=== PATIENT | male | born 1955 | race Caucasian/White ===

== ENCOUNTER 2018-12-19 17:11 | Outpatient (CLI) | payer OTHER ==
--- NOTE | 2018-12-19 17:42 | RAD ---
EXAM: Supine abdomen: INDICATIONS: Abdominal pain COMPARISON: None. FINDINGS: Bowel gas pattern unremarkable. No abnormal calcification or soft tissue mass. Degenerative spine change. IMPRESSION: No acute finding
[2018-12-19 18:06] LABS: #Basophils 0.1 thou/uL (0.0-0.2); #Eosinphils 0.1 thou/uL (0.0-0.7); #Lymphocytes 3.5 thou/uL (1.20-3.40); #Monocytes 0.5 thou/uL (0.11-0.59); #Neutrophils 3.8 thou/uL (1.40-6.50); %Basophils 1.2 % (0.0-1.0); %Eosinophils 1.7 % (0.0-10.0); %Lymphocytes 43.3 % (21.0-51.0); %Monocytes 6.4 % (0.0-10.0); %Neutrophils 47.4 % (42.0-75.0); Hemoglobin 13.6 g/dL (14.0-18.0); Mean Corpuscular HGB CONC 34.3 g/dL (32.0-36.0); Mean Corpuscular Hemoglobin 32.5 pg (27.0-31.0); Mean Corpuscular Volume 94.7 fL (78.0-98.0); Mean Platelet Volume 6.1 fL (7.4-10.4); Platelet Count 242 thou/uL (130-400); RBC Distribution Width 12.1 % (11.5-14.5); Red Blood Cell (RBC) Count 4.19 mill/uL (4.70-6.10)
[2018-12-19 18:28] LABS: ALT (SGPT) 26 U/L (8-55); AST (SGOT) 15 U/L (5-34); Albumin 4.1 g/dL (3.4-4.8); Alkaline Phosphatase 55 U/L (40-150); Anion Gap 14 mmol/L (10-20); BUN (Urea Nitrogen) 14 mg/dL (8.4-25.7); Bilirubin, Total 0.3 mg/dL (0.2-1.2); Calc. Creatinine Clearance 0 mL/min (70-130); Calcium 9.2 mg/dL (7.8-10.44); Carbon Dioxide 22 mmol/L (23-31); Chloride 107 mmol/L (98-107); Estimated GFR-MDRD Greater than 90; Globulin 3.1 g/dL (2.4-3.5); Glucose 123 mg/dL (80-115); Lipase 35 U/L (8-78); Potassium 4.4 mmol/L (3.5-5.1); Protein, Total 7.2 g/dL (5.8-8.1); Sodium 139 mmol/L (136-145)
[2018-12-19 22:02] LABS: Hemoglobin A1c 5.7 % (4.0-6.0)
[2018-12-23 10:15] LABS: H. pylori IgA ABS Less than 9.0 units (0.0-8.9); H. pylori IgG ABS 6.28 (0.00-0.79); H. pylori IgM ABS Less than 9.0 units (0.0-8.9)
== END 2018-12-19 17:12 | disposition home or self-care (01) ==
LOC: MADRAD 17:11
PROVIDERS: ATTEND Family Medicine
DX: R10.84 Generalized abdominal pain (principal); R63.5 Abnormal weight gain
CPT/HCPCS: 36415; 74018; 80053; 82150; 83036; 83690; 84443; 85025

== ENCOUNTER 2022-06-05 02:29 | Emergency (ER) | payer MEDICARE, OTHER ==
[2022-06-05] MEDS ORDERED: Oxymetazoline HCl 0.05% (30 ML BOT) ONE (02:34)
[2022-06-05] MEDS ORDERED: HYDROcodone/Acetaminophen 5/325 mg Tablet ONE ×2 (03:03→08:00)
[2022-06-05 03:20] LABS: #Basophils 0.1 thou/uL (0.0-0.2); #Eosinphils 0.2 thou/uL (0.0-0.7); #Lymphocytes 4.2 thou/uL (1.20-3.40); #Monocytes 0.6 thou/uL (0.11-0.59); #Neutrophils 5.8 thou/uL (1.40-6.50); %Basophils 0.9 % (0.0-1.0); %Eosinophils 1.8 % (0.0-10.0); %Lymphocytes 38.1 % (21.0-51.0); %Monocytes 5.6 % (0.0-10.0); %Neutrophils 53.6 % (42.0-75.0); Hemoglobin 12.3 g/dL (14.0-18.0); Mean Corpuscular HGB CONC 32.9 g/dL (32.0-36.0); Mean Corpuscular Volume 91.1 fl (78.0-98.0); Mean Platelet Volume 7.3 fL (7.4-10.4); Platelet Count 333 10x3/uL (130-400); RBC Distribution Width 12.6 % (11.5-14.5); Red Blood Cell (RBC) Count 4.09 mill/uL (4.70-6.10); White Blood Cell (WBC) Count 10.9 10x3/uL (4.8-10.8)
[2022-06-05 03:35] LABS: PTT 27.5 sec (22.9-36.1); Prothrombin Time 13.2 sec (12.0-14.7)
[2022-06-05 03:44] LABS: ALT (SGPT) 16 U/L (8-55); AST (SGOT) 16 U/L (5-34); Albumin 3.8 g/dL (3.4-4.8); Alkaline Phosphatase 61 U/L (40-110); Anion Gap 16 mmol/L (10-20); BUN (Urea Nitrogen) 10 mg/dL (8.4-25.7); Bilirubin, Total 0.2 mg/dL (0.2-1.2); Calc. Creatinine Clearance 0 mL/min (70-130); Calcium 9.2 mg/dL (7.8-10.44); Carbon Dioxide 18 mmol/L (23-31); Chloride 106 mmol/L (98-107); Estimated GFR 97; Globulin 4.1 g/dL (2.4-3.5); Glucose 166 mg/dL (80-115); Protein, Total 7.9 g/dL (5.8-8.1); Sodium 136 mmol/L (136-145)
[2022-06-05] MEDS ORDERED: Amoxicillin/Potassium Clav 875 MG TAB ONE (04:20)
[2022-06-05 07:18] LABS: Hemoglobin 11.3 g/dL (14.0-18.0)
== END 2022-06-05 08:08 | disposition home or self-care (01) ==
LOC: MADERS 02:29
DX: R04.0 Epistaxis (principal); E78.00 Pure hypercholesterolemia, unspecified; E11.9 Type 2 diabetes mellitus without complications; E66.9 Obesity, unspecified; Z79.82 Long term (current) use of aspirin; Z79.84 Long term (current) use of oral hypoglycemic drugs
CPT/HCPCS: 30903; 80053; 85025; 85610; 85730; 86850; 86900; 86901; 93005; 94760